=== PATIENT | male | born 1960 | race Caucasian/White ===

== ENCOUNTER 2020-06-30 11:03 | Outpatient (CLI) | payer BC, SELFPAY ==
--- NOTE | 2020-06-30 11:06 | ECG_ITS ---
Measurements Intervals [place] Rate: 72 P: 49 [place]: 170 QRS: 22 QRSD: 97 T: 12 QT: 311 QTc: 343 Interpretive Statements SINUS RHYTHM BORDERLINE R WAVE PROGRESSION, ANTERIOR LEADS NONSPECIFIC T-WAVE ABNORMALITY- INFERIOR LEADS BASELINE ARTIFACT- I, III, AVL BORDERLINE ECG Electronically Signed On 06-30-2020 11:14:35 CDT by Osiel Franklin D.O.
== END 2020-06-30 11:04 | disposition home or self-care (01) ==
LOC: ANHSURGERY 11:06
PROVIDERS: PCP Internal Medicine; Visit Provider Surgery
DX: E78.00 Pure hypercholesterolemia, unspecified (principal)
CPT/HCPCS: 93005

== ENCOUNTER 2020-07-05 01:36 | Outpatient (CLI) | payer BC, SELFPAY ==
[2020-07-05 18:01] LABS: SARS-CoV-2 RNA PCR Negative
== END 2020-07-05 01:37 | disposition home or self-care (01) ==
LOC: ANHCOVIDDT 01:36
PROVIDERS: PCP Internal Medicine; Visit Provider Surgery
DX: Z01.812 Encounter for preprocedural laboratory examination (principal); Z20.828 Contact with and (suspected) exposure to other viral communicable diseases
CPT/HCPCS: 87635; C9803; U0003

== ENCOUNTER 2020-07-08 02:55 | Day surgery (SDC) | payer BC, SELFPAY ==
[2020-06-27 08:06] VITALS: BMI 34.7
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
[2020-07-08] MEDS: LACTATED RINGERS 1,000 ML 30 ML IV CONT (08:20)
[2020-07-08 08:32] VITALS: BMI 35.1
[2020-07-08 08:34] VITALS: BP 154/86; PULSE 65; RESP 18; TEMP 36.6; O2SAT 100
--- NOTE | 2020-07-08 09:30 | WPDHPUPDATE1 ---
History and Physical Update Update Date/Time: 07/08/20 09:30 History and Physical has been reviewed, including an updated exam of the patient. There are NO changes in the patient's condition. Risks, benefits, and alternatives have been discussed and questions answered. Patient agrees to proceed with procedure.
[2020-07-08] MEDS: LIDO 1%/EPINEPHRINE 1:100,000 20 ML VIAL 40 ML INFILTRATE (09:56)
--- NOTE | 2020-07-08 11:04 | P.OP_ITS ---
Procedure Note - Detailed Date of procedure: 07/08/20 Pre-op diagnosis: 15 cm Back Mass Post-op diagnosis: same Procedure performed: Excision of 15 cm subcutaneous back mass Description of procedure: * procedure as well as risks, benefits, and alternatives were discussed with the patient. Written consent was obtained and placed in chart prior to procedure. Patient was brought back to surgical suite. He was placed in left lateral decubitus position on the operating table. Time-out was done to confirm patient and procedure. IV sedation was then administered by the Anesthesia Department. His back area was prepped and draped in sterile fashion using chlorhexidine prep. 1% lidocaine with epinephrine was infiltrated locally around the mass. A 15 cm transverse incision was made over the mass in the upper back using a 10 blade scalpel. Electrocautery was used for hemostasis and for dissection down to the subcutaneous mass. The mass was carefully dissected free circumferentially using electrocautery and then was dissected off of the deep tissue using electrocautery. The mass was completely excised and sent to the lab for pathology. The wound bed was then carefully inspected and hemostasis appeared adequate. No other residual masses were identified. The decision was made to place a drain within the subcu space. A small incision was made just inferior and to the right of the open wound. A 15 round Roberto Carlos drain was placed within the wound bed and exited through the small incision. The drain was secured in place using a 3 0 nylon drain stitch. The skin edges of the open wound was then reapproximated using 3 0 nylon vertical mattress interrupted sutures. Bacitracin ointment was applied followed by 4 x 4 gauze and Medipore tape. Patient was awakened from anesthesia and transferred to recovery. Anesthesia: MAC and local ( 1% lidocaine with epinephrine) Surgeon: Curtis Bradley DO Estimated blood loss (mL): 5 Drains: Yes ( 15 round Roberto Carlos) Pathology: yes ( 15 cm back mass) Complications: No immediate complications Condition: stable Disposition: same day Findings: this is a 59-year-old man who presented with a large mass in his upper back. Mass had been present for several years and has gradually grown in size. This also causes him some discomfort. A CT was performed and this showed evidence of a soft tissue mass consistent with lipoma. Discussions were made with the patient about treatment options, and decision was made to proceed with excision of 15 cm right upper back mass. The back mass was excised completely. This appeared to be a very large lipoma. Portions of the lipoma appeared very well-circumscribed, but other portions appeared multi lobulated. Care was taken to excise all the way around the circumference of the mass to completely excise all of the lipoma. Due to the wide space that was remaining and the high risk for seroma, decision was made to place a 15 round Roberto Carlos drain within the subcu space. The specimen was sent to the lab for pathology.
[2020-07-08 11:15] VITALS: BP 118/69; PULSE 71; RESP 14; TEMP 36.6; O2SAT 99
[2020-07-08 11:45] VITALS: BP 138/76; PULSE 67; RESP 14
== END 2020-07-08 12:10 | disposition home or self-care (01) ==
PROVIDERS: PCP Internal Medicine; Visit Provider Surgery
PROC: (CPT 21931; principal; 2020-07-08 10:00)
DX: D17.1 Benign lipomatous neoplasm of skin and subcutaneous tissue of trunk (principal)
CPT/HCPCS: 21931; 88304; A9270; J2250; J2370; J2704; J3010; J7120

== ENCOUNTER 2021-07-24 00:38 | Day surgery (SDC) | payer BC, SELFPAY ==
[2021-07-16 10:10] VITALS: BMI 31.1
[2021-07-24 07:40] VITALS: BP 161/84; PULSE 67; RESP 18; TEMP 36.1; O2SAT 100; BMI 31.1
[2021-07-24] MEDS: LACTATED RINGERS 1,000 ML 150 ML IV CONT (07:50)
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
[2021-07-24 08:45] VITALS: BP 105/65; PULSE 66; RESP 16; O2SAT 98
[2021-07-24 08:55] VITALS: BP 119/71; PULSE 64; RESP 18; O2SAT 100
[2021-07-24 09:05] VITALS: BP 139/83; PULSE 62; RESP 20; O2SAT 100
== END 2021-07-24 09:15 | disposition home or self-care (01) ==
PROVIDERS: PCP Internal Medicine; Visit Provider Internal Medicine Gastroenterology
PROC: 0DJD8ZZ Inspection of Lower Intestinal Tract, Via Natural or Artificial Opening Endoscopic (ICD-10-PCS; CPT 45378; principal; 2021-07-24 08:30)
DX: Z12.11 Encounter for screening for malignant neoplasm of colon (principal); D12.3 Benign neoplasm of transverse colon; K57.30 Diverticulosis of large intestine without perforation or abscess without bleeding; K63.89 Other specified diseases of intestine; K21.9 Gastro-esophageal reflux disease without esophagitis; E66.9 Obesity, unspecified; F17.210 Nicotine dependence, cigarettes, uncomplicated; Z86.010 Personal history of colon polyps; Z90.49 Acquired absence of other specified parts of digestive tract
CPT/HCPCS: 45385; 45380; 88305; J2704; J7120

== ENCOUNTER 2022-12-07 13:54 | Outpatient (CLI) | payer OTHER, SELFPAY ==
--- NOTE | ~2022-12-07 | PE_ITS ---
EXAMINATION: PET skull to mid thigh DATE: 12/08/2022 11:25 INDICATION: Solitary pulmonary nodule. TECHNIQUE: Blood glucose level was 95 mg/dL. 11.577 mCi of 18-fluorodeoxyglucose (18-FDG) was adminis tered i.v. Low dose computed tomography (CT) images were acquired from the base of the brain to the p roximal thighs for attenuation correction and anatomic localization. Automated exposure control was e mployed. Dose-length product (DLP) was 833 mGy-cm. Positron emission tomography (PET) images were acq uired in the same distribution. COMPARISON: CT abdomen and pelvis 06/20/2018 FINDINGS: Head/neck: There is increased activity in the oral cavity, pharynx, and glottis without abnormal CT c orrelate, likely physiologic. There are no pathologically enlarged lymph nodes. Chest: There is mild emphysema. There are dependent airspace and groundglass opacities in left lower lobe with maximum SUV of 13.7. No pleural effusion. Cardiomegaly is noted. There are coronary artery calcifications. No pericardial effusion. There are no pathologically enlarged lymph nodes. Abdomen/pelvis/proximal thighs: There is a 6 mm cyst in the liver. The gallbladder is normal in size. The spleen, pancreas, adrenal glands, and kidneys are normal. The prostate is mildly enlarged. There are bilateral inguinal hernias containing fat. There is diverticulosis of the colon without evidence of diverticulitis. There are no dilated loops of bowel. The appendix is normal. There are no patholo gically enlarged lymph nodes. There is no free intraperitoneal fluid. There is severe lower lumbar sp ondylosis. IMPRESSION: 1. Dependent airspace and groundglass opacities in left lung lower lobe with increased activity, cons istent with pneumonia. If there is clinical concern for malignancy within this volume based on other imaging, follow-up noncontrast low-dose chest CT is recommended in 1-3 months. 2. Mild emphysema. Reviewed, dictated and finalized at location A. LYST OPERATOR CHIEF IMPRESSION: 1. Dependent airspace and groundglass opacities in left lung lower lobe with in creased activity, consistent with pneumonia. If there is clinical concern for m alignancy within this volume based on other imaging, follow-up noncontrast low- dose chest CT is recommended in 1-3 months. 2. Mild emphysema.
[2022-12-07 14:20] LABS: Glucose Point of Care 95 mg/dl (65-105)
== END 2022-12-07 13:55 | disposition home or self-care (01) ==
PROVIDERS: PCP Internal Medicine; Visit Provider Internal Medicine Pulmonary Disease
DX: R91.1 Solitary pulmonary nodule (principal); J43.9 Emphysema, unspecified; R91.8 Other nonspecific abnormal finding of lung field
CPT/HCPCS: 78815; A9552

== ENCOUNTER 2024-10-23 11:34 | Outpatient (CLI) | payer OTHER, SELFPAY ==
--- NOTE | ~2024-10-23 | US_ITS ---
EXAMINATION: US scrotum doppler DATE: 10/23/2024 12:09 INDICATION: Right testicular lump. Other specified disorders of male genital organs. TECHNIQUE: Grayscale and Doppler ultrasound images of the testes were obtained. COMPARISON: PET/CT 12/07/2022, CT abdomen and pelvis 06/20/2018 FINDINGS: The right testis measures 3.0 x 2.3 x 2.8 cm. The left testis measures 4.1 x 2.9 x 3.2 cm. There is normal vascular flow to both testes. The right epididymis demonstrates a 7 mm cyst. The left epididymis demonstrates a 7 mm cyst. There is a small left hydrocele Lateral to the right testis, th ere is a 4.9 x 1.8 x 4.9 cm hyperechoic mass. IMPRESSION: 1. 4.9 x 1.8 x 4.9 cm hyperechoic mass in the right inguinal region. The differential diagnosis incl udes lipoma, hernia, and lymphadenopathy. Consider pelvis CT. 2. Small left hydrocele. Reviewed, dictated and finalized at location A. MILL OPERATOR IMPRESSION: 1. 4.9 x 1.8 x 4.9 cm hyperechoic mass in the right inguinal region. The diffe rential diagnosis includes lipoma, hernia, and lymphadenopathy. Consider pelvis CT. 2. Small left hydrocele.
== END 2024-10-23 11:35 | disposition home or self-care (01) ==
PROVIDERS: PCP Internal Medicine; Visit Provider Internal Medicine
DX: N50.89 Other specified disorders of the male genital organs (principal); N43.3 Hydrocele, unspecified
CPT/HCPCS: 76870; 93976

== ENCOUNTER 2024-11-24 12:29 | Outpatient (CLI) | payer OTHER, SELFPAY ==
--- NOTE | ~2024-11-24 | CT_ITS ---
CT of the Abdomen and Pelvis: Indication: Scrotal mass Technique: 2.5 mm axial scans were obtained through the abdomen and pelvis prior to and following in travenous administration of 130 cc of Omnipaque 350. Dose reduction technique was used on this scan b y utilizing automated exposure control and iterative reconstruction technique. The dose-length produc t (DLP) was 1858.00 mGy-cm. Findings: Scans through the lung bases are unremarkable. The liver, spleen, pancreas, gallbladder, adrenals and kidneys are within normal limits. There are at herosclerotic calcifications of the aorta. No lymphadenopathy. No bowel obstruction or bowel wall thickening. There is no evidence to suggest acute appendicitis. Images through the pelvis were performed. Urinary bladder unremarkable. No pelvic mass seen. No ascit es. Ovoid fat-containing mass in the right hemiscrotum is compatible with lipoma, measuring 5.4 cm in aircraft engine specialist niocaudal extent (series 602 image 69). Impression: Lipoma in the right hemiscrotum, measuring 5.4 cm in maximal diameter, as detailed above. Reviewed, dictated and finalized at location M. MINER Impression: Lipoma in the right hemiscrotum, measuring 5.4 cm in maximal diameter, as orin led above.
[2024-11-24 13:23] LABS: Estimated Glomerular Filt Rate > 60
== END 2024-11-24 12:30 | disposition home or self-care (01) ==
PROVIDERS: PCP Internal Medicine
DX: N50.89 Other specified disorders of the male genital organs (principal)
CPT/HCPCS: 74178; Q9967